=== PATIENT | male | born 1950 | race Two or more races ===

== ENCOUNTER → 2025-06-18 | Outpatient (BNVA) | payer MEDICARE, SELFPAY | END | disposition home or self-care (01) | PROVIDERS: PCP Internal Medicine; Referring Provider Internal Medicine; Visit Provider Urology | DX: N40.2 Nodular prostate without lower urinary tract symptoms (principal); E78.5 Hyperlipidemia, unspecified; E03.9 Hypothyroidism, unspecified; M19.90 Unspecified osteoarthritis, unspecified site; Z80.42 Family history of malignant neoplasm of prostate | CPT/HCPCS: 99202; G0463 ==

== ENCOUNTER → 2025-08-10 | Outpatient (BNVA) | payer MEDICARE, SELFPAY | END | disposition home or self-care (01) | PROVIDERS: PCP Internal Medicine; Referring Provider Internal Medicine; Visit Provider Urology | DX: N42.89 Other specified disorders of prostate (principal); N40.1 Benign prostatic hyperplasia with lower urinary tract symptoms; N13.8 Other obstructive and reflux uropathy | CPT/HCPCS: 55700; 76942; 81003; 96372; A4649; J1580; J3490; A9270 ==